=== PATIENT | female | born 1955 | race Caucasian/White ===

== ENCOUNTER → 2017-01-23 | Outpatient (CLI) | payer BC ==
[~2017-01-23] MED LIST: HCTZ 25MG25 MG PO; PAXIL20 MG PO; TOPROL XL 50MG50 MG PO; ZESTRIL20 MG PO
== END ==
LOC: MC.RAD 11:40
DX: Z12.31 Encounter for screening mammogram for malignant neoplasm of breast (principal)

== ENCOUNTER → 2019-10-08 | Outpatient (CLI) | payer MEDICARE, OTHER | LOC: COL.RAD 09:25 | DX: K82.8 Other specified diseases of gallbladder (principal) ==

== ENCOUNTER → 2021-09-27 | Outpatient (CLI) | payer MEDICARE, OTHER | LOC: MC.RAD 08-08 11:15 | DX: Z12.31 Encounter for screening mammogram for malignant neoplasm of breast (principal) ==

== ENCOUNTER → 2021-11-08 | Outpatient (CLI) | payer MEDICARE, OTHER | LOC: COL.RAD 10:04 | DX: M19.012 Primary osteoarthritis, left shoulder (principal); M75.122 Complete rotator cuff tear or rupture of left shoulder, not specified as traumatic ==

== ENCOUNTER → 2024-04-05 | Outpatient (CLI) | payer MEDICARE, OTHER ==
--- NOTE | 2024-04-01 09:33 | NUR ---
LMOM WITH INSTRUCTIONS AND CALL BACK NUMBER
[~2024-04-05] VITALS: Ht 162.6 cm; Wt 90.1 kg
[~2024-04-05] MED LIST changes: +Gadoterate 20 ML VIAL IV ONE; +KAPSPARGO SPRIN25 MG PO; +LR 1,000 ML IV SCH; +Lidocaine PF 2% (20 MG/ML) 5 ML VIAL ONE; +MOBIC15 MG PO; +Midazolam 2 MG/2 ML VIAL ONE; +PRINZIDE 25 MG-1 TAB PO; +fentaNYL 50 MCG/ML 2 ML VIAL ONE
[2024-04-05 11:55] VITALS: BP 125/80; PULSE 71; TEMP 97.9
[2024-04-05 13:53] VITALS: BP 125/63; PULSE 66
[2024-04-05 14:00] VITALS: BP 130/79; PULSE 65
[2024-04-05 14:15] VITALS: BP 119/78; PULSE 63
[2024-04-05 14:30] VITALS: BP 108/79; PULSE 62
--- NOTE | 2024-04-05 14:53 | NUR ---
PATIENT HAS COMPLETED HER RECOVERY TIME AND IS AWAKE AND ALERT. SHE WAS ABLE TO DRESS HERSELF WITHOUT ANY ISSUES AND WALK WITHOUT ISSUES. ESCORTED PATIENT OUT TO PATIENT ENTRANCE VIA WHEELCHAIR WHERE HER RIDE WAS WAITING FOR HER. PATIENT HAS ALL OF HER BELONGINGS AND HER D/C INSTRUCTIONS AND WAS ABLE TO GET INTO THE PASSENGER SEAT WITHOUT ISSUE. ALL NEEDS MET.
== END ==
LOC: COL.RAD 11:15
DX: S83.241A Other tear of medial meniscus, current injury, right knee, initial encounter (principal); M47.816 Spondylosis without myelopathy or radiculopathy, lumbar region; D42.0 Neoplasm of uncertain behavior of cerebral meninges
CPT/HCPCS: A9575; J2250; J2704; J3010; J7120

== ENCOUNTER → 2024-04-16 | Outpatient (CLI) | payer MEDICARE, OTHER ==
[~2024-04-16] MED LIST changes: -Gadoterate 20 ML VIAL IV ONE; +Iohexol 300 - 100 ML VIAL IV ONE; -LR 1,000 ML IV SCH; -Lidocaine PF 2% (20 MG/ML) 5 ML VIAL ONE; -Midazolam 2 MG/2 ML VIAL ONE; +NS 50 ML IV SCH; -fentaNYL 50 MCG/ML 2 ML VIAL ONE
== END ==
LOC: COL.RAD 14:28
DX: D42.0 Neoplasm of uncertain behavior of cerebral meninges (principal)
CPT/HCPCS: Q9967